=== PATIENT | male | born 1955 | race Caucasian/White ===

== ENCOUNTER 2019-10-30 16:30 | Emergency (ER) | payer MEDICARE ==
[~2019-10-30] VITALS: Ht 167.6 cm; Wt 110.9 kg
[2019-10-30 16:39] VITALS: BP 110/72; TEMP 98.6
[2019-10-30] MEDS ORDERED: HORIZANT600 MG PO ×3 (17:18→17:19)
[2019-10-30] MEDS ORDERED: CELEXA 20MG20 MG/TAB PO (17:19)
[2019-10-30] MEDS ORDERED: COUMADIN4 MG PO (17:20)
[2019-10-30] MEDS ORDERED: VITAMIN D31000 I1 PO (17:20)
[2019-10-30 17:39] LABS: BASO # 0.1 (0.0-0.2); BASO % 0.5 % (0.0-2.0); EOS # 0.2 (0.0-0.7); EOS % 2.1 % (0-4.0); GRAN # 7.5 (1.4-6.5); HEMATOCRIT 41.1 % (42.0-52.0); HEMOGLOBIN 13.6 g/dl (13.5-18.0); LYMPH % 10.3 % (20.0-51.0); MEAN CELL VOLUME 86 fl (80.0-100.0); MEAN CORPUSCULAR HEMOGLOBIN 29 pg (27.0-31.0); MEAN CORPUSCULAR HGB CONC 33 g/dl (33.0-37.0); MEAN PLATELET VOLUME 10.2 fl (7.4-10.4); MONO # 1.3 (0.1-0.6); MONO % 12.7 % (1.7-9.3); PLATELET COUNT 307 K/mm3 (130-400); RED BLOOD COUNT 4.76 M/mm3 (4.20-5.60); REDCELL DISTRIBUTION WIDTH-CV 14.4 % (11.5-14.5)
[2019-10-30 17:49] LABS: INR 2.4 (0.8-3.0); PROTHROMBIN TIME 27.1 SECONDS (9.7-12.8)
[2019-10-30 17:51] LABS: ALBUMIN 3.8 gm/dL (3.5-5.0); BILIRUBIN,TOTAL 0.6 mg/dL (0.0-1.0); C-REACTIVE PROTEIN 2.9 mg/dL (0.0-0.9); CREATININE, serum 0.97 (0.66-1.25); POTASSIUM 4.3 mmol/L (3.4-5.0); TOTAL PROTEIN 7.9 gm/dL (6.4-8.2)
[2019-10-30 18:47] LABS: COLLECTION METHOD CLEAN CATCH
[2019-10-30 19:10] LABS: PH 6 (5-8); SQUAMOUS EPITHELIAL None Seen /hpf; URINE APPEARANCE Cloudy; URINE BACTERIA Moderate /hpf; URINE BILIRUBIN Negative (NEGATIVE); URINE BLOOD 3+ (NEGATIVE); URINE COLOR Yellow; URINE GLUCOSE Negative (NEGATIVE); URINE KETONE Negative (NEGATIVE); URINE LEUKOCYTE ESTERASE Trace (NEGATIVE); URINE NITRATE Negative (NEGATIVE); URINE PROTEIN(semi-quant) 2+ (NEGATIVE); URINE RBC >50 /hpf; URINE UROBILINOGEN Negative (NEGATIVE)
[2019-10-30] MEDS ORDERED: CEPHALEXIN500 M1 PO (19:21)
[2019-10-30] MEDS ORDERED: DOXYCYCLINE 10100 MG PO (19:21)
[2019-10-30 20:10] VITALS: PULSE 88
[2019-11-01] MEDS ORDERED: LEVAQUIN 5500 MG/TA1 PO ×2 (12:29)
[2019-11-01] MEDS ORDERED: PEN-VEE K500 MG PO (12:54)
== END 2019-10-30 20:10 | disposition home or self-care (01) ==
LOC: COL.ER 16:30
PROVIDERS: Emergency Medicine
DX: N39.0 Urinary tract infection, site not specified (principal); L03.115 Cellulitis of right lower limb; Z79.01 Long term (current) use of anticoagulants
CPT/HCPCS: J0696; J7030

== ENCOUNTER 2019-11-05 20:32 | Observation (INO) | payer MEDICARE ==
[~2019-11-05] VITALS: Ht 167.6 cm; Wt 118.3 kg
[~2019-11-05 20:32] MED LIST: CELEXA 20MG20 MG/TAB PO; CEPHALEXIN500 M1 PO; COUMADIN4 MG PO; DOXYCYCLINE 10100 MG PO; HORIZANT600 MG PO; LEVAQUIN 5500 MG/TA1 PO; PEN-VEE K500 MG PO; VITAMIN D31000 I1 PO
[2019-11-05 21:30] LABS: BASO # 0.1 (0.0-0.2); BASO % 0.9 % (0.0-2.0); EOS # 0.4 (0.0-0.7); EOS % 4.3 % (0-4.0); GRAN # 6.4 (1.4-6.5); GRAN % 70.1 % (42.2-75.2); HEMATOCRIT 47.7 % (42.0-52.0); HEMOGLOBIN 15.7 g/dl (13.5-18.0); LYMPH # 1.2 (1.2-3.4); LYMPH % 12.8 % (20.0-51.0); MEAN CELL VOLUME 86 fl (80.0-100.0); MEAN CORPUSCULAR HEMOGLOBIN 28 pg (27.0-31.0); MEAN CORPUSCULAR HGB CONC 33 g/dl (33.0-37.0); MEAN PLATELET VOLUME 9.8 fl (7.4-10.4); MONO # 1.1 (0.1-0.6); MONO % 11.7 % (1.7-9.3); PLATELET COUNT 347 K/mm3 (130-400); RED BLOOD COUNT 5.55 M/mm3 (4.20-5.60)
[2019-11-05 21:38] LABS: INR 2.9 (0.8-3.0); PROTHROMBIN TIME 32.3 SECONDS (9.7-12.8)
[2019-11-05 21:43] LABS: ALANINE AMINOTRANSFERASE 52 U/L (4-49); ALBUMIN 4.3 gm/dL (3.5-5.0); ALKALINE PHOSPHATASE 88 U/L (50-136); ANION GAP 9 mmol/L (7-16); AST,SGOT 51 U/L (15-37); BILIRUBIN,TOTAL 0.5 mg/dL (0.0-1.0); BLOOD UREA NITROGEN 16 mg/dL (9-20); CALCIUM 9.5 mg/dL (8.4-10.2); CARBON DIOXIDE 28 mmol/L (22-30); CHLORIDE 101 mmol/L (98-107); CREATININE, serum 1.04 (0.66-1.25); GLUCOSE 103 mg/dL (74-106); LIPASE 44 U/L (23-300); SODIUM 139 mmol/L (137-145); TOTAL PROTEIN 8.7 gm/dL (6.4-8.2)
[2019-11-05 21:54] LABS: TROPONIN-I < 0.012 ng/mL (0.000-0.035)
[2019-11-05 22:31] VITALS: BP 128/67; PULSE 63
[2019-11-05 23:02] LABS: COLLECTION METHOD CLEAN CATCH
[2019-11-05 23:13] LABS: MUCOUS Present /lpf; PH 5 (5-8); SQUAMOUS EPITHELIAL 0-2 /hpf; URINE APPEARANCE Hazy; URINE BACTERIA None Seen /hpf; URINE BILIRUBIN Negative (NEGATIVE); URINE BLOOD Negative (NEGATIVE); URINE COLOR Yellow; URINE GLUCOSE Negative (NEGATIVE); URINE KETONE Negative (NEGATIVE); URINE LEUKOCYTE ESTERASE Negative (NEGATIVE); URINE NITRATE Negative (NEGATIVE); URINE PROTEIN(semi-quant) 1+ (NEGATIVE); URINE UROBILINOGEN Negative (NEGATIVE)
[2019-11-06 02:46] VITALS: BP 139/70; PULSE 61; TEMP 97.9
[2019-11-06] MEDS ORDERED: CEPHALEXIN500 M1 PO (03:25)
--- NOTE | 2019-11-06 03:37 | NUR ---
Patient arrived to medical floor at 0240. Assessment complete. Lungs clear. Heart sounds normal. Bowels active x4. Pulses weak in lower extremities. Bilateral lower extremity edema, left +3 and right +4. Bilateral lower extremities scaling and crusting. Wounds/ulcers to lower extremities as follows: Right lateral midcalf 1cm X2cm Right mid velázquez 0.5cm X 1.5cm Right upper velázquez 2cm X 2.5 cm Left lateral lower calf/ankle 6cm X 5cm Left lateral mid calf 3cm X 3cm Clean dressings reapplied-per ER nurse on what type of dressing as taken off. Lower extremities elevated. Vanco infusing into left AC without complications. Denies pain. Orientated to medical floor. Med rec complete. Spoke with son and [id number] (OBGYN at [facility]), updated and verified home antibiotics. Visitor policy reviewed. Dr. Ireland notified at 0340 of patient arrival. No new orders at this time. Patient currently resting in bed. No further questions at this time. Call light in reach. Patient bed alarm on and yellow gown in place due to reports of recent fall.
--- NOTE | 2019-11-06 06:08 | NUR ---
Patient had uneventful night since admission. Resting in bed this AM. Call light in reach.
--- NOTE | 2019-11-06 07:06 | NUR ---
Report given to VENUS Franklin
[2019-11-06 07:18] VITALS: BP 116/60; PULSE 66; TEMP 97.7
--- NOTE | 2019-11-06 10:00 | NUR ---
Assessment completed, alert/oriented, vital signs stable, denies pain, heart RRR/disal pulse are palpable, lungs CTA/ no resp.difficulty noted, 2-3+ edema to BLE, redness and multiple ulcers in various stages of healing, hospitalist in the room at this time to eval the patient, Son present at this time as well
--- NOTE | 2019-11-06 11:31 | NUR ---
Pt requested to speak with UR concerning status. Informed pt that he is OBS at present and does not qualify for INPT status at present per Dr. Schuler and Michael. Also instructed pt that Medicare has standards for INPT status and that if Dr. Schuler felt pt's case had advanced to INPT status we could upgrade him to that but there is no back dating to admit for INPT. Pt verbalized understanding and answered all of the pt's questions. I told pt that if he had any more questions or his family needed to talk with us to notify his nurse, Rigoberto and we would come and visit.
[2019-11-06 12:16] VITALS: BP 97/83; PULSE 60; TEMP 98.4
--- NOTE | 2019-11-06 13:38 | NUR ---
TEE met with the patient and his son, Tate (ph#[phone]), to discuss discharge plan. The patient's ujryjlqq-kc-ekl, Junaid (ph#[phone]), was on speaker phone. Junaid is an OBGYN at [employer]. The patient recently moved here (10 days ago), from [place], [place]. He lives with Junaid Ybarra, and his two grandchildren. He reports needing assistance with ADLs and has a cane, walker, and wheelchair. He states that his son helps him with his ADLs. The patient's primary care provider is DEENA Montejo and he receives his medications at [facility]. He reports no difficulties obtaining his meds. He states that he has only seen Charis Lyn once. The patient does not have a DPOA-HC, but him and his son were interested in completing a DPOA-HC. TEE provided form. The patient designated his son, Tate. He designated Junaid as his alternate. TEE and the hospitalist, Dr. Schuler, witnessed the patient's signature. The patient was provided with the original and some copies. SW placed a copy in the patient's chart. Tate and Junaid expressed their concerns with the patient's mobility, wound care, and medical. They report that their goal is to keep him in their home, but may be interested in some post-acute rehab. TEE discussed the options and the patient's status as observation. The patient and his family prefer [place] [facility]. The patient's son, Tate, and Junaid report the patient would not be able to private pay at a facility. Tate and Junaid report that if the patient's status was to change to inpatient, then their second preference would be [facility]. Tate and Junaid report that if either preference cannot take, then plan would be for the patient to return back home with them with home health services. TEE informed them of the home health agencies. The patient and his family chose [facility]. TEE updated the clinical team on the families concerns. The patient does not qualify as an inpatient. TEE consulted IPR Director, Rosnane. TEE contacted and faxed a referral to Mabel at [facility] and Lindsey at [facility]. Mabel, at [facility], reports that they are unable to accept the patient. SW awaiting [facility]'s and [facility] HH screen. SW to update the patient and his family and will continue to follow.
--- NOTE | 2019-11-06 16:36 | NUR ---
Rosanne, IPR Director, reports that the patient's insurance will need auth. The patient's insurance will be switching from [employer] to [employer] on 11/09. Rosanen plans on submitting the patient's information for auth, but will not have an answer from them until early next week. If the patient does d/c tomorrow, IPR can accept the patient from his home, if approved by insurance. Lindsey, at [facility], reports that they are able to accept the patient for services. The patient is to tentatively d/c tomorrow. TEE contacted and updated the patient's buirlzzd-wd-bot, Junaid. Junaid is agreeable with the patient returning back with them with home health services from [facility]. The patient and son have been updated of plan. TEE notified the patient's PA of plan. SW to continue to follow.
[2019-11-06 16:59] VITALS: BP 109/55; PULSE 61; TEMP 97.6
[2019-11-06 19:23] VITALS: BP 135/67; PULSE 72; TEMP 98.4
--- NOTE | 2019-11-06 20:00 | NUR ---
A/O x4. Pt sitting up on side of bed eating dinner during shift change report. Denies any pain at this time. 1-2+ assist with use of walker to BR, x1 incontinent of urine. Had small soft BM. BLE with dressing in place, denies pain. INT to LAC intact, flushed, dressing CDI. BLE elevated on pillows. Made pt comfortable in bed, needs met. Call light within reach.
[2019-11-07] VITALS: BP 120/50; PULSE 73; TEMP 98
[2019-11-07 04:00] VITALS: BP 111/54; PULSE 63; TEMP 98.2
--- NOTE | 2019-11-07 04:09 | NUR ---
Pt called requesting to use BR. Pt was incontinent of urine. Briefs changed. 1+ with assit and use of walker to BR. Denies any pain at this time. BLE elevated on pillows. Made pt comfortable in bed. call light within reach.
--- NOTE | 2019-11-07 07:18 | NUR ---
Report given to VENUS Pinzon.
[2019-11-07 07:50] LABS: BASO % 0.7 % (0.0-2.0); EOS # 0.3 (0.0-0.7); EOS % 4.4 % (0-4.0); GRAN # 3.9 (1.4-6.5); GRAN % 64.8 % (42.2-75.2); HEMATOCRIT 38.1 % (42.0-52.0); LYMPH # 0.9 (1.2-3.4); LYMPH % 15.6 % (20.0-51.0); MEAN CELL VOLUME 85 fl (80.0-100.0); MEAN CORPUSCULAR HEMOGLOBIN 28 pg (27.0-31.0); MEAN CORPUSCULAR HGB CONC 33 g/dl (33.0-37.0); MEAN PLATELET VOLUME 10.1 fl (7.4-10.4); MONO # 0.9 (0.1-0.6); MONO % 14.2 % (1.7-9.3); PLATELET COUNT 288 K/mm3 (130-400); RED BLOOD COUNT 4.51 M/mm3 (4.20-5.60); REDCELL DISTRIBUTION WIDTH-CV 13.9 % (11.5-14.5)
[2019-11-07 07:51] LABS: INR 2.5 (0.8-3.0); PROTHROMBIN TIME 27.9 SECONDS (9.7-12.8)
[2019-11-07 07:56] LABS: HEMOGLOBIN 12.5 g/dl (13.5-18.0)
[2019-11-07 08:12] LABS: CALCIUM 8.6 mg/dL (8.4-10.2); CREATININE, serum 0.85 (0.66-1.25)
[2019-11-07 08:40] VITALS: BP 122/60; PULSE 59; TEMP 97.8
[2019-11-07] MEDS ORDERED: CIPRO750 MG PO (10:12)
[2019-11-07] MEDS ORDERED: MONODOX100 PO (10:13)
[2019-11-07] MEDS ORDERED: NEURONTIN600 MG/TAB PO (10:13)
[2019-11-07 12:12] VITALS: BP 111/58; PULSE 55; TEMP 97.8
--- NOTE | 2019-11-07 16:06 | NUR ---
Patient alert and oriented. 2+ edema on bilateral lower extremity. patient require 1 person assist to ambulate to the bathroom. int discontinued. Doxycycline, Gabapentin, cipro. patient was transported to private car with wheelchair. Patient family member drove patient home.
== END 2019-11-07 13:00 | disposition home or self-care (01) ==
LOC: COL.ER 20:32 → MEDICAL 23:59
PROVIDERS: Emergency Medicine; Physician Assistant; ADMIT Hospitalist
DX: R60.0 Localized edema (principal); R53.1 Weakness; R41.82 Altered mental status, unspecified; L03.90 Cellulitis, unspecified; Z86.718 Personal history of other venous thrombosis and embolism; Z86.711 Personal history of pulmonary embolism; F41.9 Anxiety disorder, unspecified; F32.9 Major depressive disorder, single episode, unspecified; G62.9 Polyneuropathy, unspecified; Z79.01 Long term (current) use of anticoagulants; Z86.73 Personal history of transient ischemic attack (TIA), and cerebral infarction without residual deficits; Z92.3 Personal history of irradiation; Z85.118 Personal history of other malignant neoplasm of bronchus and lung; Z85.89 Personal history of malignant neoplasm of other organs and systems; Z87.891 Personal history of nicotine dependence
CPT/HCPCS: A9585; G0378; J0692; J3370; J7030; J7050

== ENCOUNTER → 2020-02-22 | Outpatient (CLI) | payer MEDICARE ==
[~2020-02-22] MED LIST changes: +CIPRO750 MG PO; +MONODOX100 PO; +NEURONTIN600 MG/TAB PO
== END ==
LOC: COL.RAD 11:12
DX: N32.89 Other specified disorders of bladder (principal); R31.0 Gross hematuria
CPT/HCPCS: Q9967

== ENCOUNTER → 2020-08-12 | Outpatient (CLI) | payer MEDICARE | LOC: ZCOL.LAB 16:49 | DX: I83.009 Varicose veins of unspecified lower extremity with ulcer of unspecified site (principal) ==